=== PATIENT | male | born 1980 | race Caucasian/White ===

== ENCOUNTER → 2020-12-29 15:50 | Outpatient (CLI) | payer BC, SELFPAY ==
[2020-12-29 16:34] LABS: Anion Gap 12.1 mEq/L (5-15); Blood Urea Nitrogen 12 mg/dl (9-20); Calcium 9.2 mg/dl (8.4-10.2); Carbon Dioxide 29 mmol/L (22.0-30.0); Chloride 102 mmol/L (98-107); Estimated Glomerular Filt Rate 94 ml/min (>60); GFR (African American) 114 ML/MIN (>60); Glucose 112 mg/dl (74-100); Potassium 4.1 mmoL/L (3.5-5.1); Sodium 139 mmol/L (136-145)
== END ==
PROVIDERS: Visit Provider Urology
DX: R10.9 Unspecified abdominal pain (principal)
CPT/HCPCS: 36415; 80048

== ENCOUNTER → 2021-01-01 11:22 | Outpatient (CLI) | payer BC, SELFPAY ==
--- NOTE | 2021-01-01 11:23 | US_ITS ---
PROCEDURE: US KIDNEY CLINICAL INDICATION: Back pain, flank pain COMPARISON: No exams were available for comparison FINDINGS: The right kidney is [id number]. No hydronephrosis, cortical thinning, or renal mass or perinephric fluid collection is evident. The left kidney is [id number]. No hydronephrosis, cortical thinning, or renal mass or perinephric fluid collection is evident. IMPRESSION: Unremarkable bilateral renal ultrasound Dictated by: Hugo Waddell MD 01/01/2021 14:13 Hugo Waddell MD in [facility] 01/01/2021 14:13
== END ==
PROVIDERS: PCP Family Medicine; Visit Provider Urology
DX: R10.9 Unspecified abdominal pain (principal)
CPT/HCPCS: 76770